=== PATIENT | female | born 2000 | race African-American/Black ===

== ENCOUNTER 2023-08-26 07:59 | Emergency (ER) | payer OTHER ==
[~2023-08-26] VITALS: Ht 160 cm; Wt 53.5 kg
[2023-08-26] MEDS ORDERED: HYDROCODONE/APAP 10-325 MG TABLET ONE (08:23)
[2023-08-26] MEDS: HYDROCODONE/APAP 10-325 MG TABLET PO ONE (08:27)
[2023-08-26] MEDS ORDERED: HYDR-3980 PO (08:40)
[2023-08-26] MEDS ORDERED: NEOMY/BACITRA/POLYMYXIN B OINT UD PACKET TP ONE (08:41)
[2023-08-26] MEDS: NEOMY/BACITRA/POLYMYXIN B OINT UD PACKET TP ONE (09:05)
[2023-08-26 09:44] VITALS: BP 118/78; TEMP 97; O2SAT 99
== END 2023-08-26 09:53 | disposition home or self-care (01) ==
LOC: ER 07:59
DX: S80.01XA Contusion of right knee, initial encounter (principal); S16.1XXA Strain of muscle, fascia and tendon at neck level, initial encounter; S09.8XXA Other specified injuries of head, initial encounter; Z79.899 Other long term (current) drug therapy; V49.9XXA Car occupant (driver) (passenger) injured in unspecified traffic accident, initial encounter; Y93.89 Activity, other specified; Y92.89 Other specified places as the place of occurrence of the external cause; Y99.8 Other external cause status
CPT/HCPCS: 73562; A4606; A4663